=== PATIENT | male | born 1970 | race Caucasian/White ===

== ENCOUNTER 2022-05-21 08:23 | Emergency (ER) | payer SELFPAY ==
[2022-05-21 08:26] VITALS: BP 137/90; PULSE 79; RESP 14; TEMP 36.5; O2SAT 100
[2022-05-21 09:01] VITALS: BP 118/105; O2SAT 99
[2022-05-21 10:09] LABS: Basophils Percent Auto 0.4 % (0.2-1.2); Eosinophils Absolute Auto 0.2 K/mm3 (0-0.3); Eosinophils Percent Auto 2.4 % (0-4.4); Hematocrit 48.5 % (42.0-52.0); Hemoglobin 16.2 g/dL (14.0-18.0); Immature Granulocyte Absolute 0.02 K/mm3 (0.00-0.031); Immature Granulocyte Percent A 0.3 % (0-0.5); Lymphocytes Absolute Auto 1.48 K/mm3 (0.9-3.2); Lymphocytes Percent Auto 21.9 % (18.3-44.2); Mean Corpuscular HGB Conc 33.4 g/dl (32-36); Mean Corpuscular Hemoglobin 30.2 pg (26-34); Mean Corpuscular Volume 90.3 fl (80-100); Mean Platelet Volume 9.6 fl (7.4-10.4); Monocytes Absolute Auto 0.4 K/mm3 (0.1-0.6); Monocytes Percent Auto 6.2 % (2.6-8.5); Neutrophils Absolute Auto 4.6 K/mm3 (1.3-6.7); Neutrophils Percent Auto 68.8 % (45.5-73.1); Platelet Count Result 283 k/mm3 (150-375); Red Blood Count 5.37 M/mm3 (4.6-6.20); Red Cell Distribution Width 13.2 % (11.5-14.5); White Blood Count 6.8 K/mm3 (4.5-10.0)
[2022-05-21 10:21] LABS: Alanine Aminotransferase 29 U/L (6-50); Albumin Level 4.7 g/dL (3.5-5.1); Alkaline Phosphatase 97 U/L (38-126); Anion Gap 7 mmol/L (8-16); Aspartate Amino Transferase 36 U/L (17-59); Bilirubin,Total 1.3 mg/dL (0.2-1.3); Blood Urea Nitrogen 10 mg/dL (9-20); Calcium 9.1 mg/dL (8.4-10.2); Carbon Dioxide 26 mmol/L (22-30); Chloride 102 mmol/L (98-107); Estimated CRCL calculation 74 ml/min; Estimated Glomerular Filt Rate > 60; Glucose 114 mg/dL (65-110); Potassium 4.3 mmol/L (3.4-5.0); Sodium 135 mmol/L (137-145)
[2022-05-21 10:32] LABS: Strep Group A RT-PCR NOT DETECTED (Negative)
--- NOTE | 2022-05-21 10:48 | ED.GENADULT ---
HPI - General Adult General Chief complaint: Skin/Abscess/Foreign Body Stated complaint: hives, laryngitis Time Seen by Provider: 05/21/22 09:46 History of Present Illness HPI narrative: 51-year-old male presented emerged department for evaluation of persistent rash that has been ongoing for approximately 3 months. Patient states that he did present to [facility] approximately 1 month ago and was treated with steroids and Benadryl. Patient states that this has not significantly helped with his symptoms. Patient denies any itching or pain of the rash. Rash is on arms extremities back and torso along with face. Patient states that he did improve on the lower extremities. Patient denies any previous history of syphilis Related Data Allergies Allergy/AdvReac Type Severity Reaction Status Date / Time codeine Allergy Mild Other Verified 05/21/22 08:39 Review of Systems Review of Systems: CONSTITUTIONAL: Denies fever, chills, or sweats. EYES: Denies visual changes, redness, or discharge. ENT: Denies rhinorrhea, congestion, sore throat, or otalgia. CARDIOVASCULAR: Denies chest pain, palpitations, or edema. RESPIRATORY: Denies cough or dyspnea. GASTROINTESTINAL: Denies abdominal pain, nausea, vomiting, or diarrhea. GENITOURINARY: Denies dysuria or hematuria. SKIN: See HPI MUSCULOSKELETAL: Denies back pain, joint pain, or myalgia. NEUROLOGIC: Denies headache, numbness, or weakness. Exam Narrative: APPEARANCE: Well appearing, no pain, no distress, well-nourished. HEAD: normocephalic, atraumatic. EYES: PERRLA/EOMI, conjunctivae clear. NOSE: Normal no drainage EARS:TMS clear with good light reflex. THROAT: Pharynx clear, no exudate. NECK: Supple. No adenopathy, no masses. RESPIRATORY: Airway patent, respirations nonlabored. Clear to auscultation bilaterally, no rales, rhonchi, wheezing. CARDIOVASCULAR: Regular rate and rhythm without murmurs rubs or gallops. ABDOMINAL: Soft, nontender, nondistended, normal bowel sounds MUSCULOSKELETAL: Moves all extremities. Strength/ROM intact, No edema, No calf tenderness. NEURO: Alert. Cranial nerves II through XII intact. Good gait. Good coordination SKIN: Extensive maculopapular rash on arms legs face chest back. No involvement on palms, genitals or mouth Course Course Emergency Course: Patient denies any previous history of syphilis. Patient denies any concern for STDs to the last few years. Patient's RPR was positive and antibody testing is pending. Patient was treated with IM penicillin, 2,400,000 units. Patient was encouraged of close follow-up with his primary care physician for follow-up on the testing. Patient was also encouraged to follow-up with a medical physician on-call if he was not able to secure follow-up with his primary care physician. If his RPR testing is negative patient was encouraged to still seek follow-up with dermatology. Patient does have a significant other that is currently . Patient is denying any symptoms. Patient does have close follow-up with [facility]. Since patient's partner has close follow-up with [facility] and it was decided to hold off on empiric treatment due to her being completely asymptomatic. Patient's partner was strongly encouraged to have close follow-up and she was comfortable with this plan. Differential diagnosis for the rash does include chronic urticaria, erythema multiforme, dermatitis, psoriasis, but due to the patient's RPR being positive and patient not responding to prior prednisone the patient was treated for possible syphilis with penicillin. Patient will have follow-up with his physicians for additional treatment as needed. Vital Signs Vital signs: Vital Signs Temperature 97.7 F 05/21/22 08:26 Pulse Rate 79 05/21/22 08:26 Respiratory Rate 14 05/21/22 08:26 Blood Pressure 137/90 05/21/22 08:26 Pulse Oximetry 100 05/21/22 08:26 Oxygen Delivery Room Air 05/21/22 08:26 Temperature 97.7 F 05/21/22 08:26
[2022-05-21 11:56] LABS: Rapid Plasma Reagin Reactive (NonReactive)
[2022-05-21] MEDS: PENICILLIN G BENZATHINE 2,400,000 UNITS/4 ML SYRINGE 2400000 UNITS IM (12:20)
[2022-05-21 12:39] VITALS: BP 146/84; PULSE 90; RESP 18; O2SAT 99
[2022-05-25 19:44] LABS: Treponema pallidum Ab FTA ABS Reactive (Nonreactive)
[2022-05-25 19:44] LABS: Treponema pallidum Ab FTA ABS Reactive (Nonreactive)
== END 2022-05-21 12:40 | disposition home or self-care (01) ==
PROVIDERS: Emergency Provider Emergency Medicine; PCP Nurse Practitioner Family
DX: R21 Rash and other nonspecific skin eruption (principal); R76.8 Other specified abnormal immunological findings in serum
CPT/HCPCS: 36415; 80053; 85025; 86592; 86780; 87651; 96372; 99283; J0561